=== PATIENT | male | born 1965 | race African-American/Black ===

== ENCOUNTER 2017-04-08 08:32 | Emergency (ER) | payer BC ==
[~2017-04-08] VITALS: Ht 167.6 cm; Wt 107.0 kg
[2017-04-08 08:43] VITALS: BP 141/99
[2017-04-08] MEDS ORDERED: KETOROLAC 60MG/2ML VIAL IM ONE (13:15)
== END 2017-04-08 14:22 | disposition home or self-care (01) ==
LOC: ER 13:40
DX: G44.209 Tension-type headache, unspecified, not intractable (principal); I10 Essential (primary) hypertension; M54.9 Dorsalgia, unspecified
CPT/HCPCS: 96372; 99283; J1885